=== PATIENT | female | born 1950 | race Caucasian/White ===

== ENCOUNTER 2019-03-27 08:15 | Outpatient (CLI) | payer MEDICARE, OTHER ==
--- NOTE | 2019-03-27 12:07 | Mammography Report ---
Reason: ROUTINE MAMMO Procedure Date: 03/27/2019 Accession Number: [id number] / [id number] Procedure: JULIO - Screening Mammo w/Kisahn CPT Code: Final Report FULL RESULT: EXAM: Screening Mammo w/Kishan DATE: 03/27/2019 9:09 AM CLINICAL HISTORY: Screening encounter. History of benign right and left breast biopsy. Family history of breast cancer in a sister at the age of 30. TECHNIQUE: (B) - Bilateral CC and MLO views were obtained. COMPARISON: 10/26/2018 through 03/29/2017. PARENCHYMAL PATTERN: (D) - The breast(s) demonstrate(s) heterogeneously dense fibroglandular parenchyma. FINDINGS: There are coarse typically benign calcifications. There are no suspicious masses, calcifications, or areas of distortion. IMPRESSION: Benign findings. BI-RADS category 2. RECOMMENDATION: (ANNUAL) - Recommend routine annual screening mammography. BI-RADS CATEGORY: (2) - Benign Findings. STANDARD QUALIFYING STATEMENTS: 1. This examination was not reviewed with the aid of Computer-Aided Detection (CAD). 2. A negative or benign imaging report should not preclude biopsy if clinically suspicious findings are present. 3. Dense breasts may obscure an underlying neoplasm. 4. This examination was reviewed with the aid of 3D breast imaging (tomosynthesis).
== END 2019-03-27 08:16 | disposition home or self-care (01) ==
LOC: DI 08:15
DX: Z12.31 Encounter for screening mammogram for malignant neoplasm of breast (principal); Z80.3 Family history of malignant neoplasm of breast
CPT/HCPCS: 77063; 77067

== ENCOUNTER 2019-03-27 08:20 | Outpatient (CLI) | payer MEDICARE, OTHER ==
--- NOTE | 2019-03-27 12:04 | Ultrasound Report ---
Reason: 6 MO F/U - ABN MAMMO Procedure Date: 03/27/2019 Accession Number: [id number] / [id number] Procedure: US - Breast Unilateral Limited CPT Code: Final Report FULL RESULT: EXAM: Breast Unilateral Limited DATE: 03/27/2019 9:53 AM CLINICAL HISTORY: 6 MO F/U - ABN MAMMO COMPARISON: Outside institution ultrasound images 10/26/2018. TECHNIQUE: Targeted ultrasound was performed of the right breast in the area of clinical concern at 9 o'clock and in the retroareolar region near the nipple. Color Doppler was employed as appropriate. FINDINGS: The previously identified hyperechoic geographic focus less than 1 cm deep to the skin is again seen and unchanged in shape and appearance measuring up to 0.6 cm, potentially the fatty hilum of a lymph node with imperceptibly thin cortex which is not well seen, wider than tall with no aggressive features. No architectural distortion is seen and no suspicious masses identified. IMPRESSION: Benign findings RECOMMENDATION: Recommend routine annual Screening mammography unless otherwise clinically indicated. BIRADS CATEGORY 2: Benign findings RADIA
== END 2019-03-27 08:21 | disposition home or self-care (01) ==
LOC: DI 08:20
PROVIDERS: ATTEND Internal Medicine
DX: D48.61 Neoplasm of uncertain behavior of right breast (principal)
CPT/HCPCS: 76642

== ENCOUNTER 2020-10-26 14:25 | Outpatient (CLI) | payer MEDICARE, OTHER ==
--- NOTE | 2020-10-27 10:35 | XRAY Report ---
PROCEDURE: Ribs w/PA Chest RT INDICATIONS: CONTUSION OF R FRONT WALL OF THORAX TECHNIQUE: 4 views of the right ribs were acquired, along with a single view chest. COMPARISON: None FINDINGS: Surgical changes and devices: None. Bones and chest wall: No fractures or dislocations. No suspicious bony lesions. Overlying soft tis sues appear unremarkable. Lungs and pleura: No pleural effusions or pneumothorax. Lungs appear clear. Mediastinum: Mediastinal contours appear normal. Heart size is normal. IMPRESSION: No visualized acute fracture or dislocation. However, occult injury cannot be excluded. Recommend esme rt interval imaging follow-up in 7-10 days as clinically indicated for additional evaluation. Reviewed by: Susan Ramos MD on 10/27/2020 10:34 AM PDT Approved by: Susan Ramos MD on 10/27/2020 10:34 AM PDT Station ID: [id number]
== END 2020-10-26 23:59 | disposition home or self-care (01) ==
LOC: DI.N 14:25
PROVIDERS: ATTEND Physician Assistant Medical
DX: S20.211A Contusion of right front wall of thorax, initial encounter (principal); R07.81 Pleurodynia

== ENCOUNTER 2023-09-05 15:00 | Outpatient (CLI) | payer MEDICARE, OTHER ==
--- NOTE | 2023-09-06 00:55 | XRAY Report ---
PROCEDURE: Shoulder 2+V RT INDICATIONS: PAIN IN RIGHT SHOULDER TECHNIQUE: 3 views of the shoulder were acquired. COMPARISON: None FINDINGS: Bones: No fractures or dislocations. No suspicious bony lesions. Visualized ribs appear intact. G lenohumeral moderate joint space narrowing without remodeling the femoral head Soft tissues: No suspicious soft tissue calcifications. IMPRESSION: Moderate glenohumeral osteoarthritis Reviewed by: Noah Lawson MD on 09/05/2023 11:54 PM AKDT Approved by: Noah Lawson MD on 09/05/2023 11:54 PM AKDT Station ID: [id number]
== END 2023-09-05 15:15 | disposition home or self-care (01) ==
LOC: DI.N 15:00
PROVIDERS: ATTEND Nurse Practitioner
DX: M19.011 Primary osteoarthritis, right shoulder (principal)